=== PATIENT | female | born 1965 | race Caucasian/White ===

== ENCOUNTER 2024-08-05 13:09 | Outpatient (CLI) | payer MEDICARE, MEDICAID, SELFPAY ==
--- NOTE | ~2024-08-05 | XR_ITS ---
XR knee RT 3V Ordering provider: Twin Wilkes, GIOVANNY History: . right knee pain . Comparison: None. FINDINGS: BONES: No acute fracture or dislocation. 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 Bipartite patella. SOFT TISSUES: Vascular atherosclerotic changes. IMPRESSION: No acute osseous abnormality right knee. Reviewed, dictated and finalized at location A. COATER
== END 2024-08-05 13:10 | disposition home or self-care (01) ==
LOC: CHSIMG 13:17
PROVIDERS: PCP Family Medicine; Visit Provider Physician Assistant
DX: M25.561 Pain in right knee (principal)
CPT/HCPCS: 73562

== ENCOUNTER 2024-08-07 23:14 | Emergency (ER) | payer MEDICARE, MEDICAID, SELFPAY ==
--- NOTE | ~2024-08-07 | XR_ITS ---
HISTORY: DORSAL foot pain AFTER FALL COMPARISON: None TECHNIQUE: 4 views of the right foot were performed FINDINGS: Acute fracture of the proximal phalanx of the right fifth toe with medial displacement of the fractur e fragment No significant degenerative disease is noted. The base of the fifth metatarsal is intact. No calcaneal spur is noted. Moderate soft tissue swelling is present. IMPRESSION: Acute fracture of the proximal phalanx of the right fifth toe with medial displacement o f the fracture fragment. Reviewed, dictated and finalized at location A. IFIED PERSONAL FINANCE COUNSELOR IMPRESSION: Acute fracture of the proximal phalanx of the right fifth toe with medial displacement of the fracture fragment.
--- NOTE | ~2024-08-07 | XR_ITS ---
HISTORY: ANTERIOR ankle pain status post fall COMPARISON: None TECHNIQUE: 4 views of the right ankle were performed FINDINGS: No acute fracture or dislocation. Lateral soft tissue swelling is present. Large calcaneal spur is noted. The ankle mortise is preserved. Bone mineralization is age-appropriate. IMPRESSION: Soft tissue swelling without fracture detected Reviewed, dictated and finalized at location A. DDING MACHINE OPERATOR
[2024-08-07 23:16] VITALS: BP 173/84; PULSE 81; RESP 18; TEMP 36.2; O2SAT 97
--- NOTE | 2024-08-07 23:20 | ED.LOWEXIN ---
HPI - Extremity Injury (Lower) General Chief Complaint: Extremity Injury, Lower Stated Complaint: lower extremity injury Source: patient and family Mode of arrival: wheelchair History of Present Illness HPI Narrative: 59-year-old female with a history of obesity, hypertension, diabetes mellitus, hypothyroidism, CKD, fell at 4:00 p.m. today while attempting to climb into a truck. She sustained right foot/ right ankle injury. She presents with -- pain and swelling of the 3rd 4th 5th metatarsals -- right ankle pain. Unable to bear weight. no head injury. MD complaint: ankle injury and foot injury Onset (ago): hour(s) ( 7 hours) Injury: Right: ankle and foot Type of Injury: blunt Place: home Severity: severe Context: fall Associated symptoms: swelling Other symptoms: none Related Data Home Medications Medication Instructions Recorded Confirmed aspirin 81 mg tablet,delayed 81 mg PO DAILY 08/07/24 08/07/24 release doxazosin 4 mg tablet 4 mg PO HS 08/07/24 08/07/24 dulaglutide 1.5 mg/0.5 mL 1.5 mg subcut WEEKLY 08/07/24 08/07/24 [facility] ferrous sulfate 324 mg PO DAILY 08/07/24 08/07/24 gabapentin 400 mg capsule 400 mg PO BID 08/07/24 08/07/24 hydralazine 100 mg tablet 100 mg PO TID 08/07/24 08/07/24 hydrocodone 5 mg-acetaminophen 325 1 tablet PO Q8H 08/07/24 08/07/24 mg tablet insulin glargine U-300 conc 300 28 unit subcut HS 08/07/24 08/07/24 unit/mL (1.5 mL) subcutaneous pen (Anisha SolChelear U-300 Insulin) isosorbide mononitrate 30 mg 30 mg PO DAILY 08/07/24 08/07/24 tablet,extended release 24 hr labetalol 300 mg tablet 300 mg PO Q12H 08/07/24 08/07/24 latanoprost 0.005 % eye drops 1 drp EACH EYE HS 08/07/24 08/07/24 levothyroxine 175 mcg tablet 175 mcg PO DAILY 08/07/24 08/07/24 lorazepam 0.5 mg tablet 0.5 mg PO BID 08/07/24 08/07/24 naloxone 4 mg/actuation nasal spray 4 mg intranasal PRN 08/07/24 08/07/24 sodium bicarbonate 650 mg tablet 650 mg PO BID 08/07/24 08/07/24 trazodone 50 mg tablet 75 mg PO HS 08/07/24 08/07/24 venlafaxine 150 mg 150 mg PO BID 08/07/24 08/07/24 capsule,extended release 24 hr Allergies Allergy/AdvReac Type Severity Reaction Status Date / Time tramadol AdvReac Nausea Verified 08/07/24 23:18 Review of Systems Review of Systems: All systems reviewed & are unremarkable except as noted in HPI and below Constitutional: Constitutional: Reports as per HPI and Reports no additional constitutional complaints Eyes: Eyes: Reports as per HPI and Reports no additional eye complaints ENT: Reports system reviewed and no additional complaints, except as documented and Reports as per HPI Cardiovascular: Cardiovascular: Reports as per HPI and Reports no additional cardiovascular complaints Respiratory: Respiratory: Reports as per HPI, Reports no additional respiratory complaints and Reports dyspnea Gastrointestinal: Gastrointestinal: Reports as per HPI and Reports no additional gastrointestinal complaints Genitourinary: Genitourinary: Reports no additional female genitourinary complaints and Reports as per HPI Musculoskeletal: Musculoskeletal: Reports no additional musculoskeletal complaints Comments: right foot pain and swelling right ankle pain Integumentary/Breasts: Skin/Breast: Reports system reviewed and no additional complaints, except as docu and Reports as per HPI Neurologic: Reports system reviewed and no additional complaints, except as documented and Reports as per HPI Psychiatric: Psychiatric: Reports no additional psychiatric complaints and Reports as per HPI Endocrine: Endocrine: Reports no additional endocrine complaints and Reports as per HPI Hematologic/Lymphatic: Hematologic/Lymphatic: Reports no additional hematologic/lymphatic complaints and Reports as per HPI Allergic/Immunologic: Allergic/Immunologic: Reports no additional allergic/immunologic complaints and Reports as per HPI [facility] Past Medical History Medical History Chronic anemia CKD (chronic kidney disease) Diabetes mellitus Hypertension Exam Narrative: blood pressure stable. Oxygen saturation 97% on room air. Respiratory rate of 18. Const: General: no acute distress Nutritional Appearance: obese Orientation/consciousness: patient oriented x3 Limitations: no limitations HENMT: Head: normal to inspection Ears: external ears normal Face/Nose/Sinus: Normal external nose present Face and sinus: normal facial exam Mouth: Yes Normal oral and palatal mucosa present Throat: posterior oropharynx normal Eyes: Conjunctivae: conjunctivae normal Pupils: Equal, round and reactive pupils present EOM: EOMs intact bilaterally Direct Ophthalmoscopy: no photophobia Neck: Neck: normal visual inspection, no lymphadenopathy and no meningeal signs Chest: Chest palpation & inspection: normal inspection of the chest Resp: Effort & Inspection: normal respiratory effort Auscultation: diminished lung sounds Cardio: Rate: regular rate Rhythm: regular rhythm GI: GI Palp: Yes Soft to palpation Auscultation: normal bowel sounds Other: No tenderness/rigidity / : General: Yes no CVA tenderness Back/Spine/Pelvis: Back: no CVA tenderness Skin: General skin exam: normal color Other: Bruising of the right forefoot Neuro: General: patient oriented x3, moves all extremities, no meningeal signs, no focal motor deficits and CN's II-XI intact bilaterally Cranial nerves: Yes Nystagmus not present Speech: normal speech Gait exam (Neuro): Normal gait present Extrem: General: normal to inspection Other: right foot-- pain and swelling over the 3/4/5 metatarsal bones with decreased range of motion at the MP joint. Right ankle -- swelling over the lateral malleolus. Psych: Mental Status: mental status grossly normal Affect: normal affect Attitude: cooperative Course Course Emergency Course: Accidental fall fracture of the proximal phalanx of little toe with medial displacement of the fracture fragment ankle sprain Vital Signs Vital signs: Vital Signs Temperature 36.2 C L 08/07/24 23:16 Pulse Rate 81 08/07/24 23:16 Respiratory Rate 18 08/07/24 23:16 Blood Pressure 173/84 H 08/07/24 23:16 Pulse Oximetry 97 08/07/24 23:16 Oxygen Delivery Room Air 08/07/24 23:16 Temperature 36.2 C L 08/07/24 23:16 Pulse Rate 81 08/07/24 23:16 Respiratory Rate 18 08/07/24 23:16 Blood Pressure 173/84 H 08/07/24 23:16 Pulse Oximetry 97 08/07/24 23:16 Oxygen Delivery Room Air 08/07/24 23:16 MDM - Extremity Injury (Lower) MDM Narrative Medical decision making narrative: accidental fall fracture of the proximal phalanx of the little toe-- dionisio tape applied. Distal neurovascular bundle is intact. ankle pain Differential Diagnosis Differential diagnosis: Likely ankle sprain and strain, fracture of toe and ankle fracture Medical Records Attestation: I reviewed the patient's medical records. Discharge Plan Discharge Clinical Impression: Accidental fall Qualifiers: Encounter type: initial encounter Qualified Code(s): W19.XXXA - Unspecified fall, initial encounter Acute ankle pain Qualifiers: Laterality: right Qualified Code(s): M25.571 - Pain in right ankle and joints of right foot Phalanges fracture, foot Qualifiers: Encounter type: initial encounter Toe: lesser toe Fracture type: closed Phalanx: proximal Fracture alignment: displaced Laterality: right Qualified Code(s): S92.511A - Displaced fracture of proximal phalanx of right lesser toe(s), initial encounter for closed fracture Patient Disposition: Home, Self-Care Condition: Stable Instructions: Antibiotic Form, Toe Fracture (ED), Arthralgia (ED) Additional Instructions: follow-up with ortho specialist Patient Language: Mozambican Prescriptions: New hydrocodone-acetaminophen 5-325 mg tablet 1 tablet PO Q8H PRN (Reason: pain) Qty: 14 0RF No Action latanoprost 0.005 % drops 1 drp EACH EYE HS levothyroxine 175 mcg tablet 175 mcg PO DAILY trazodone 50 mg tablet 75 mg PO HS hydrocodone-acetaminophen 5-325 mg tablet 1 tablet PO Q8H isosorbide mononitrate 30 mg tablet extended release 24 hr 30 mg PO DAILY gabapentin 400 mg capsule 400 mg PO BID venlafaxine 150 mg capsule,extended release 24hr 150 mg PO BID lorazepam 0.5 mg tablet 0.5 mg PO BID hydralazine 100 mg tablet 100 mg PO TID doxazosin 4 mg tablet 4 mg PO HS labetalol 300 mg tablet 300 mg PO Q12H Trulicity 1.5 mg/0.5 mL pen injector 1.5 mg SUBCUT WEEKLY Rx Instructions: take on night insulin glargine U-300 conc [Toujeo SoloStar U-300 Insulin] 300 unit/mL (1.5 mL) insulin pen 28 unit SUBCUT HS naloxone 4 mg/actuation spray,non-aerosol 4 mg INTRANASAL PRN aspirin [Adult Aspirin EC Low Strength] 81 mg Tablet,Delayed Release (Dr/Ec) 81 mg PO DAILY sodium bicarbonate 650 mg Tablet 650 mg PO BID ferrous sulfate 324 mg PO DAILY Follow-up/Referrals: Jhoan,MD Alfa [Primary Care Provider] - Time of Disposition: 23:51
[2024-08-08] MEDS: HYDROmorphone HCL INJ (*CRX) 2 MG/ML VIAL 0.5 MG IM (00:16)
[2024-08-08] MEDS: ONDANSETRON HCL ODT 4 MG TABLET PO (00:16)
[2024-08-08 00:30] VITALS: BP 160/81; PULSE 80; RESP 18; O2SAT 96
== END 2024-08-08 00:30 | disposition home or self-care (01) ==
PROVIDERS: Emergency Provider Internal Medicine Critical Care Medicine; PCP Family Medicine
DX: S92.511A Displaced fracture of proximal phalanx of right lesser toe(s), initial encounter for closed fracture (principal); M25.571 Pain in right ankle and joints of right foot; I12.9 Hypertensive chronic kidney disease with stage 1 through stage 4 chronic kidney disease, or unspecified chronic kidney disease; E11.22 Type 2 diabetes mellitus with diabetic chronic kidney disease; N18.9 Chronic kidney disease, unspecified; Z79.899 Other long term (current) drug therapy; Z79.891 Long term (current) use of opiate analgesic; Z79.82 Long term (current) use of aspirin; W19.XXXA Unspecified fall, initial encounter
CPT/HCPCS: 73610; 73630; 96372; 99284; A9270; J1171

== ENCOUNTER 2024-10-13 12:42 | Emergency (ER) | payer MEDICARE, MEDICAID, SELFPAY ==
--- NOTE | ~2024-10-13 | XR_ITS ---
CHEST RADIOGRAPH CLINICAL HISTORY: cough x2 days . COMPARISON: None available TECHNIQUE: Single portable view of the chest. FINDINGS The cardiomediastinal silhouette is unremarkable. The lungs are clear. Visualized osseous structures and soft tissues are unremarkable. IMPRESSION: No focal infiltrate or effusion. Reviewed, dictated and finalized at location A. ONNEL SPECIALIST
[2024-10-13 12:45] VITALS: BP 180/78; PULSE 74; RESP 20; TEMP 36.6; O2SAT 100
[2024-10-13 12:50] VITALS: O2SAT 100
--- NOTE | 2024-10-13 12:55 | ED.URI ---
HPI - URI/Sore Throat General Chief Complaint: Upper Respiratory Infection Stated Complaint: cough, congestion Time Seen by Provider: 10/13/24 12:55 Source: patient Mode of arrival: ambulatory Limitations: no limitations History of Present Illness HPI Narrative: patient drove herself to the emergency room complaining of runny nose, nasal drainage, postnasal discharge, productive cough of clear sputum, body aches started 2 days ago. Patient reported that her boyfriend had similar symptoms and currently improved. History of diabetes, hypertension, hyperlipidemia, does not smoke, does not have history of COPD or congestive heart failure. Related Data Home Medications ?Medication ?Instructions ?Recorded ?Confirmed ?Last Taken ?Type aspirin 81 mg tablet,delayed 81 mg PO DAILY 08/07/24 08/07/24 08/07/24 History release doxazosin 4 mg tablet 4 mg PO HS 08/07/24 08/07/24 08/07/24 History dulaglutide 1.5 mg/0.5 mL 1.5 mg subcut WEEKLY 08/07/24 08/07/24 08/07/24 History subcutaneous pen injector (Trulicity) ferrous sulfate 324 mg PO DAILY 08/07/24 08/07/24 08/07/24 History gabapentin 400 mg capsule 400 mg PO BID 08/07/24 08/07/24 08/07/24 History hydralazine 100 mg tablet 100 mg PO TID 08/07/24 08/07/24 08/07/24 History hydrocodone 5 mg-acetaminophen 325 1 tablet PO Q8H 08/07/24 08/07/24 08/07/24 History mg tablet insulin glargine U-300 conc 300 28 unit subcut HS 08/07/24 08/07/24 08/07/24 History unit/mL (1.5 mL) subcutaneous pen (Toujeo SoloStar U-300 Insulin) isosorbide mononitrate 30 mg 30 mg PO DAILY 08/07/24 08/07/24 08/07/24 History tablet,extended release 24 hr labetalol 300 mg tablet 300 mg PO Q12H 08/07/24 08/07/24 08/07/24 History latanoprost 0.005 % eye drops 1 drp EACH EYE HS 08/07/24 08/07/24 08/07/24 History levothyroxine 175 mcg tablet 175 mcg PO DAILY 08/07/24 08/07/24 08/07/24 History lorazepam 0.5 mg tablet 0.5 mg PO BID 08/07/24 08/07/24 08/07/24 History naloxone 4 mg/actuation nasal spray 4 mg intranasal PRN 08/07/24 08/07/24 Unknown History sodium bicarbonate 650 mg tablet 650 mg PO BID 08/07/24 08/07/24 08/07/24 History trazodone 50 mg tablet 75 mg PO HS 08/07/24 08/07/24 08/07/24 History venlafaxine 150 mg 150 mg PO BID 08/07/24 08/07/24 08/07/24 History capsule,extended release 24 hr Allergies Allergy/AdvReac Type Severity Reaction Status Date / Time tramadol AdvReac Nausea Verified 10/13/24 12:44 Review of Systems Review of Systems: All systems reviewed & are unremarkable except as noted in HPI and below PMFSH Past Medical History Medical History Chronic anemia CKD (chronic kidney disease) Diabetes mellitus Hypertension Exam Narrative: General appearance: Well-developed, well-nourished Skin: Normal color Head: Normocephalic, nontraumatic Eyes: Clear conjunctiva ENT: Oropharynx normal, ears normal, nose normal Neck: Supple, nontender Chest and respiratory: Airway patent, no respiratory distress, no accessory muscle use , few scattered rhonchi bilaterally Heart: Regular rate/rhythm Neurologic: Alert and oriented ?3, SALES ACCOUNT REPRESENTATIVE is normal as tested, no gross motor deficit Course Vital Signs Vital signs: Vital Signs Temperature 36.6 C 10/13/24 12:45 Pulse Rate 74 10/13/24 12:45 Respiratory Rate 20 10/13/24 12:45 Blood Pressure 180/78 H 10/13/24 12:45 Pulse Oximetry 100 10/13/24 12:45 Oxygen Delivery Room Air 10/13/24 12:45 Temperature 36.6 C 10/13/24 12:45 Pulse Rate 74 10/13/24 12:45 Respiratory Rate 20 10/13/24 12:45 Blood Pressure 180/78 H 10/13/24 12:45 Pulse Oximetry 100 10/13/24 12:50 Oxygen Delivery Room Air 10/13/24 12:50 MDM - URI/Sore Throat MDM Narrative Medical decision making narrative: patient presents with upper respiratory viral infection like symptoms Vital signs showed blood pressure 180/78 otherwise within normal limit Physical examination showing intermittent productive cough of clear sputum with few scattered rhonchi bilaterally, oxygen saturation on room air is 100%. Differential diagnosis upper respiratory viral infection, pneumonia Chest x-ray showed Patient tested POSITIVE FOR RSV DISCHARGED ON ATROVENT NASAL SPRAY AND ALBUTEROL INHALER Differential Diagnosis Differential diagnosis: Likely other ( As above) Lab Data Labs: Lab Results 10/13/24 Range/Units 12:44 Influenza A (RT-PCR) Negative (Negative) Influenza B (RT-PCR) Negative (Negative) RSV (RT-PCR) Positive A (Negative) SARS-CoV-2 RNA (RT-PCR) Negative (Negative) Critical Care Time Critical Care Time Critical Care Time: No Discharge Plan Discharge Clinical Impression: RSV (respiratory syncytial virus infection) Patient Disposition: Home, Self-Care Condition: Stable Instructions: Viral Syndrome (ED), RSV (Respiratory Syncytial Virus) Infection (ED) Additional Instructions: RETURN IF SYMPTOMS ARE WORSENING , CALL YOUR FAMILY PHYSICIAN FOR APPOINTMENT, TAKE TYLENOL NEEDED FOR ACHES AND PAIN, CONTINUE HOME MEDICATIONS. Patient Language: [place] Island[place] Prescriptions: New ipratropium bromide 42 mcg (0.06 %) spray,non-aerosol 2 spray intranasal QID Qty: 15 0RF Rx Instructions: administer into each nostril albuterol sulfate [Ventolin HFA] 90 mcg/actuation HFA aerosol inhaler 2 puff inhalation QID PRN (Reason: shortness of breath or wheezing) Qty: 8.5 0RF No Action latanoprost 0.005 % drops 1 drp EACH EYE HS levothyroxine 175 mcg tablet 175 mcg PO DAILY trazodone 50 mg tablet 75 mg PO HS hydrocodone-acetaminophen 5-325 mg tablet 1 tablet PO Q8H isosorbide mononitrate 30 mg tablet extended release 24 hr 30 mg PO DAILY gabapentin 400 mg capsule 400 mg PO BID venlafaxine 150 mg capsule,extended release 24hr 150 mg PO BID lorazepam 0.5 mg tablet 0.5 mg PO BID hydralazine 100 mg tablet 100 mg PO TID doxazosin 4 mg tablet 4 mg PO HS labetalol 300 mg tablet 300 mg PO Q12H Trulicity 1.5 mg/0.5 mL pen injector 1.5 mg SUBCUT WEEKLY Rx Instructions: take on night insulin glargine U-300 conc [Toujeo SoloStar U-300 Insulin] 300 unit/mL (1.5 mL) insulin pen 28 unit SUBCUT HS naloxone 4 mg/actuation spray,non-aerosol 4 mg INTRANASAL PRN aspirin [Adult Aspirin EC Low Strength] 81 mg Tablet,Delayed Release (Dr/Ec) 81 mg PO DAILY sodium bicarbonate 650 mg Tablet 650 mg PO BID ferrous sulfate 324 mg PO DAILY hydrocodone-acetaminophen 5-325 mg tablet 1 tablet PO Q8H PRN (Reason: pain) Qty: 14 0RF Follow-up/Referrals: Jhoan,MD Alfa [Primary Care Provider] -
--- NOTE | 2024-10-13 12:57 | PC.NURSE ---
Covid culture sent to lab
[2024-10-13 13:34] LABS: Influenza A QL RT-PCR Negative (Negative); Influenza B QL RT-PCR Negative (Negative); RSV RNA, RT-PCR Positive (Negative); SARS-CoV-2 RNA PCR Negative (Negative)
[2024-10-13 13:48] VITALS: BP 165/72; PULSE 82; RESP 20; TEMP 36.7; O2SAT 100
== END 2024-10-13 13:48 | disposition home or self-care (01) ==
PROVIDERS: Emergency Provider Emergency Medicine; PCP Family Medicine
DX: J06.9 Acute upper respiratory infection, unspecified (principal); B97.4 Respiratory syncytial virus as the cause of diseases classified elsewhere; J44.9 Chronic obstructive pulmonary disease, unspecified; I13.0 Hypertensive heart and chronic kidney disease with heart failure and stage 1 through stage 4 chronic kidney disease, or unspecified chronic kidney disease; E11.22 Type 2 diabetes mellitus with diabetic chronic kidney disease; N18.9 Chronic kidney disease, unspecified; I50.9 Heart failure, unspecified; Z20.822 Contact with and (suspected) exposure to COVID-19
CPT/HCPCS: 71045; 87637; 99283

== ENCOUNTER 2024-11-22 11:56 | Outpatient (CLI) | payer MEDICARE, MEDICAID, SELFPAY | END 2024-11-22 11:57 | disposition home or self-care (01) | LOC: CHSIMG 11:58 | PROVIDERS: PCP Family Medicine; Visit Provider Family Medicine | DX: S92.501D Displaced unspecified fracture of right lesser toe(s), subsequent encounter for fracture with routine healing (principal) | CPT/HCPCS: 73660 ==